=== PATIENT | female | born 1945 | race Hispanic/Latino ===

== ENCOUNTER → 2022-07-08 | Outpatient (CLI) | payer MEDICARE ==
[~2022-07-08] MED LIST: IOHEXOL 350 MG/ML 100ML INFUS..BTL IV ONE; METOPROLOL TARTRATE 1 MG/ML 5ML VIAL IV ONE
== END | disposition home or self-care (01) ==
LOC: RAH 09:48
PROVIDERS: ATTEND Student in an Organized Health Care Education/Training Program
DX: R07.9 Chest pain, unspecified (principal); M47.815 Spondylosis without myelopathy or radiculopathy, thoracolumbar region
CPT/HCPCS: 75574; J3490; Q9967

== ENCOUNTER → 2022-07-08 | Outpatient (CLI) | payer MEDICARE | END | disposition home or self-care (01) | LOC: SHCH 08:20 | PROVIDERS: ATTEND Student in an Organized Health Care Education/Training Program | DX: I25.10 Atherosclerotic heart disease of native coronary artery without angina pectoris (principal); R07.9 Chest pain, unspecified; M47.815 Spondylosis without myelopathy or radiculopathy, thoracolumbar region | CPT/HCPCS: 93306; 75574; J3490; Q9967 ==

== ENCOUNTER 2022-08-30 07:35 | Observation (INO) | payer MEDICARE ==
[2022-08-26 09:13] LABS: BASOPHILS % (AUTO) 0.4 % (0.0-5.0); EOSINOPHILS % (AUTO) 2.2 % (0.0-8.0); HEMATOCRIT 39.1 % (36-48); LYMPHOCYTES % (AUTO) 32.2 % (21.0-51.0); MEAN CORPUSCULAR HEMOGLOBIN 29.2 pg (27.0-33.0); MEAN CORPUSCULAR HGB CONC 32.7 g/dL (32.0-36.0); MEAN CORPUSCULAR VOLUME 89.1 fL (79-99); MONOCYTES % (AUTO) 7.6 % (3.0-13.0); NEUTROPHILS % (AUTO) 57.2 % (40.0-77.0); PLATELET COUNT (AUTO) 302 K/uL (130-400); RED BLOOD CELL COUNT(AUTO) 4.39 MIL/uL (4.00-5.50); RED CELL DISTRIBUTION WIDTH 13.8 % (11.0-15.5); WHITE BLOOD COUNT (AUTO) 8.2 K/uL (4.8-10.8)
[2022-08-26 09:14] VITALS: BP 173/64
[2022-08-26 09:26] LABS: INR 0.98 (0.85-1.15); PROTHROMBIN TIME 10.7 SEC (9.6-11.6)
[2022-08-26 09:27] LABS: CREATININE 0.6 mg/dL (0.5-1.5); PARTIAL THROMBOPLASTIN TIME 35.6 SEC (26.3-35.5); POTASSIUM 4.5 mmol/L (3.5-5.1)
[~2022-08-30] VITALS: Ht 160 cm; Wt 102.5 kg
[2022-08-30] VITALS (13 sets, daily range): BP systolic 119–154; BP diastolic 43–76
[~2022-08-30 07:35] MED LIST changes: +ASPI-449 PO; +ATOR40TA71 PO; -IOHEXOL 350 MG/ML 100ML INFUS..BTL IV ONE; +METO-408 PO; -METOPROLOL TARTRATE 1 MG/ML 5ML VIAL IV ONE; +ROPI0.257 PO; +TRAM50TA4 PO
[2022-08-30] MEDS ORDERED: 0.9%NACL 1000ML 1,000 ML IV ONE (09:09)
[2022-08-30] MEDS ORDERED: FENTANYL CITRATE PF 50 MCG/1 ML 2ML VIAL ONE (09:39)
[2022-08-30] MEDS ORDERED: MIDAZOLAM HCL 1 MG/ML 2ML VIAL ONE ×2 (09:39→10:14)
[2022-08-30] MEDS ORDERED: LIDOCAINE HCL 400MG/20ML VIAL ONE (09:39)
[2022-08-30] MEDS ORDERED: NITROGLYCERIN 50MG VIAL ONE (09:40)
[2022-08-30] MEDS ORDERED: IOHEXOL-350 50ML VIAL IV ONE (09:40)
[2022-08-30] MEDS ORDERED: IOHEXOL 350 MG/ML 100ML INFUS..BTL IV ONE ×2 (09:40→10:40)
[2022-08-30] MEDS ORDERED: HEPARIN 10,000 UNIT/10ML (1,000 UNIT/ML) VIAL ONE (09:40)
[2022-08-30] MEDS ORDERED: VERAPAMIL HCL 2.5 MG/ML VIAL ONE (09:40)
[2022-08-30] MEDS ORDERED: AMIODARONE 150MG VIAL ONE (10:43)
[2022-08-30] MEDS ORDERED: CLOPIDOGREL 300MG TAB ONE (10:59)
[2022-08-30] MEDS ORDERED: CLOPIDOGREL 300MG TAB PO SCH (12:00)
[2022-08-30] MEDS ORDERED: 0.9%NACL 1000ML 1,000 ML IV SCH (12:00)
[2022-08-30] MEDS ORDERED: ONDANSETRON 4MG INJ IVP SCH (12:00)
[2022-08-30] MEDS ORDERED: ACETAMINOPHEN WITH CODEINE 1 TAB TAB PO PRN ×2 (12:00)
[2022-08-30] MEDS ORDERED: NITROGLYCERIN 50MG/D5W 250ML 1 BOT IV PRN (12:00)
[2022-08-30] MEDS ORDERED: ONDANSETRON 4MG INJ IVP PRN (12:00)
[2022-08-30] MEDS ORDERED: TEMAZEPAM 30 MG CAP PO PRN (12:00)
[2022-08-30] MEDS ORDERED: MORPHINE 5 MG/ML VIAL (5MG OR GREATER DOSE) IVP SCH ×2 (12:00)
[2022-08-30] MEDS ORDERED: TRAMADOL HCL 50 MG TABLET ONE (15:07)
[2022-08-30] MEDS ORDERED: TRAMADOL HCL 50 MG TABLET PO PRN (15:30)
[2022-08-31 04:11] VITALS: BP 111/51
[2022-08-31 04:16] LABS: CREATININE 0.7 mg/dL (0.5-1.5); POTASSIUM 3.9 mmol/L (3.5-5.1)
[2022-08-31 07:42] VITALS: BP 111/53
[2022-08-31] MEDS ORDERED: CLOPIDOGREL 75MG TAB PO SCH (09:00)
[2022-08-31] MEDS ORDERED: PANTOPRAZOLE 40 MG TAB DR PO SCH (09:00)
[2022-08-31] MEDS ORDERED: ASPIRIN 81MG CHEW TAB PO SCH (09:00)
[2022-08-31] MEDS ORDERED: ATORVASTATIN 40 MG TABLET PO SCH (09:00)
[2022-08-31] MEDS ORDERED: METOPROLOL SUCCINATE 25 MG TAB.SR.24H PO SCH (09:00)
[2022-08-31] MEDS ORDERED: ROPINIROLE HCL 0.25 MG TABLET PO SCH (21:00)
== END 2022-08-31 12:42 | disposition home or self-care (01) ==
LOC: DAH 07:35 → DAHIP 07:36 → DAH 07:36 → 2AH 13:50
PROVIDERS: ADMIT Student in an Organized Health Care Education/Training Program; ATTEND Student in an Organized Health Care Education/Training Program
DX: I25.10 Atherosclerotic heart disease of native coronary artery without angina pectoris (principal); R93.1 Abnormal findings on diagnostic imaging of heart and coronary circulation; I10 Essential (primary) hypertension; I47.20 Ventricular tachycardia, unspecified; G25.81 Restless legs syndrome; E66.01 Morbid (severe) obesity due to excess calories; M79.81 Nontraumatic hematoma of soft tissue; Z95.1 Presence of aortocoronary bypass graft; Z79.899 Other long term (current) drug therapy; Z98.890 Other specified postprocedural states; Z68.41 Body mass index [BMI] 40.0-44.9, adult
CPT/HCPCS: 80048 ×2; 85025; 85610; 85730; 36415 ×2; 71045; 93005 ×3; 92978; 93458; 93571; 85347 ×3; 76882; C1769 ×3; C1894 ×3; C1760 ×2; C1887; C1753; C1874; C1725 ×2; Q9965 ×3; G0378 ×25; J3010; J3490 ×3; J7030; J1644 ×3; J2250 ×2; Q9967 ×3; J0282; A4215; A4223 ×3; A4222; A4221; A4663; A4216; A4606; C9600; 99156; 99157

== ENCOUNTER → 2022-12-13 | Outpatient (CLI) | payer MEDICARE ==
[2022-12-13 12:24] LABS: HEMOGLOBIN A1C 5.6 % (4.0-6.0)
[2022-12-13 12:31] LABS: CHOLESTEROL 154 mg/dL (<200); HDL CHOLESTEROL 47 mg/dL (35-85); LDL DIRECT 100 mg/dL (0-99); TRIGLYCERIDES 89 mg/dL (30-200)
== END | disposition home or self-care (01) ==
LOC: LAB 08:05
PROVIDERS: ATTEND Student in an Organized Health Care Education/Training Program
DX: E11.9 Type 2 diabetes mellitus without complications (principal); E78.5 Hyperlipidemia, unspecified
CPT/HCPCS: 36415; 80061; 83036

== ENCOUNTER → 2022-12-16 | Outpatient (CLI) | payer MEDICARE ==
[~2022-12-16] MED LIST changes: +ROPI0.2535 PO; -ROPI0.257 PO
== END | disposition home or self-care (01) ==
LOC: SHCH 09:26
PROVIDERS: ATTEND Student in an Organized Health Care Education/Training Program
DX: I87.2 Venous insufficiency (chronic) (peripheral) (principal); R60.0 Localized edema; I73.9 Peripheral vascular disease, unspecified
CPT/HCPCS: 93925; 93970

== ENCOUNTER → 2023-01-10 | Outpatient (CLI) | payer MEDICARE | END | disposition home or self-care (01) | LOC: RAH 09:09 | PROVIDERS: ATTEND Family Medicine | DX: Z12.31 Encounter for screening mammogram for malignant neoplasm of breast (principal) | CPT/HCPCS: 77067 ==

== ENCOUNTER 2023-03-27 14:13 | Observation (INO) | payer MEDICARE ==
[~2023-03-27] VITALS: Ht 162.6 cm; Wt 102.2 kg
[2023-03-27 14:38] LABS: BASOPHILS # (AUTO) 0.05 K/uL (0.00-0.20); BASOPHILS % (AUTO) 0.6 % (0.0-5.0); EOSINOPHILS # (AUTO) 0.14 K/uL (0.00-0.70); EOSINOPHILS % (AUTO) 1.7 % (0.0-8.0); HEMATOCRIT 39.6 % (36-48); IMMATURE GRANULOCYTE ABSOLUTE 0.02 K/uL (0-1); LYMPHOCYTES % (AUTO) 35.3 % (21.0-51.0); MEAN CORPUSCULAR HEMOGLOBIN 29.8 pg (27.0-33.0); MEAN CORPUSCULAR HGB CONC 33.8 g/dL (32.0-36.0); MEAN CORPUSCULAR VOLUME 88.2 fL (79-99); MONOCYTES # (AUTO) 0.6 K/uL (0.1-1.0); NEUTROPHILS # (AUTO) 4.7 K/uL (1.8-7.7); NEUTROPHILS % (AUTO) 55.2 % (40.0-77.0); PLATELET COUNT (AUTO) 330 K/uL (130-400); RED BLOOD CELL COUNT(AUTO) 4.49 MIL/uL (4.00-5.50); RED CELL DISTRIBUTION WIDTH 13.3 % (11.0-15.5); WHITE BLOOD COUNT (AUTO) 8.4 K/uL (4.8-10.8)
[2023-03-27 14:42] LABS: APPEARANCE,URINE CLEAR (CLEAR); BILIRUBIN,URINE NEGATIVE (NEGATIVE); COLOR,URINE YELLOW (YELLOW); GLUCOSE, URINE (UA) NEGATIVE (NEGATIVE); KETONES,URINE NEGATIVE (NEGATIVE); LEUKOCYTE ESTERASE ,URINE 75 Leu/uL (NEGATIVE); NITRATE,URINE NEGATIVE (NEGATIVE); OCCULT BLOOD,URINE SMALL (NEGATIVE); PH,URINE 5.5 (5.0-8.0); PROTEIN,URINE NEGATIVE (NEGATIVE); UROBILINOGEN,URINE 0.2 mg/dL (0.2-1.0)
[2023-03-27 14:43] LABS: ADD UA MICROSCOPIC YES
[2023-03-27 14:45] LABS: BACTERIA,URINE RARE /HPF (None Seen); MUCUS,URINE RARE LPF (None Seen); SQUAMOUS EPITHELIAL CELL,UR RARE /HPF (0-2)
[2023-03-27 14:46] LABS: CARBON DIOXIDE 27 mmol/L (21-32); CHLORIDE 104 mmol/L (101-111); CREATININE 0.7 mg/dL (0.5-1.5); GLOMERULAR FILTR. RATE CALC 90 mL/min (>90); GLUCOSE,RANDOM 117 mg/dL (70-105); POTASSIUM 3.8 mmol/L (3.5-5.1); SODIUM SERUM 139 mmol/L (136-145); UREA NITROGEN, BLOOD 10 mg/dL (7-18)
[2023-03-27 14:56] LABS: ALANINE AMINOTRANSFERASE 24 U/L (12-78); ALBUMIN 3.4 g/dL (3.5-5.0); ASPARTATE AMINOTRANSFERASE 17 U/L (10-37); BILIRUBIN,TOTAL 0.3 mg/dL (0.2-1.0); CREATINE KINASE, TOTAL 50 U/L (21-232); MYOGLOBIN 41 ng/mL (10-92); TOTAL PROTEIN, SERUM 7.5 g/dL (6.0-8.3)
[2023-03-27] MEDS ORDERED: POTASSIUM CHLORIDE 10% ELIXIR 20 MEQ/15 ML UDCUP PO PRN (20:30)
[2023-03-27] MEDS ORDERED: NITROGLYCERIN 0.4 MG SL TAB SL PRN (20:30)
[2023-03-27] MEDS ORDERED: ONDANSETRON 4MG INJ IV PRN (20:30)
[2023-03-27] MEDS ORDERED: ACETAMINOPHEN 325 MG TAB PO PRN (20:30)
[2023-03-27] MEDS ORDERED: MAGNESIUM 2GM PREMIX 50ML 50 ML IV PRN (20:30)
[2023-03-27] MEDS ORDERED: KCL 20 MEQ ERTAB PO PRN (20:30)
[2023-03-27] MEDS ORDERED: POTASSIUM CHLORIDE 20MEQ/100ML 100 ML IV PRN (20:30)
[2023-03-27] MEDS: METOPROLOL TARTRATE 25 MG TAB PO SCH (21:00)
[2023-03-27] MEDS: FAMOTIDINE 20MG TAB PO SCH (23:41)
[2023-03-27] MEDS: CEFTRIAXONE 1G VIAL IVPB SCH (23:41)
[2023-03-28] VITALS (7 sets, daily range): BP systolic 116–172; BP diastolic 57–73; PULSE 64–84; RESP 17–20; O2SAT 97
[2023-03-28] MEDS ORDERED: ROPINIROLE HCL 0.25 MG TABLET PO ONE
[2023-03-28 04:41] LABS: BASOPHILS # (AUTO) 0.04 K/uL (0.00-0.20); BASOPHILS % (AUTO) 0.4 % (0.0-5.0); EOSINOPHILS # (AUTO) 0.21 K/uL (0.00-0.70); EOSINOPHILS % (AUTO) 2.4 % (0.0-8.0); HEMATOCRIT 37.3 % (36-48); IMMATURE GRANULOCYTE ABSOLUTE 0.04 K/uL (0-1); LYMPHOCYTES # (AUTO) 3.1 K/uL (1.0-4.8); LYMPHOCYTES % (AUTO) 34.8 % (21.0-51.0); MEAN CORPUSCULAR HEMOGLOBIN 29.5 pg (27.0-33.0); MEAN CORPUSCULAR HGB CONC 33.2 g/dL (32.0-36.0); MEAN CORPUSCULAR VOLUME 88.8 fL (79-99); MONOCYTES # (AUTO) 0.7 K/uL (0.1-1.0); MONOCYTES % (AUTO) 7.3 % (3.0-13.0); NEUTROPHILS # (AUTO) 4.9 K/uL (1.8-7.7); NEUTROPHILS % (AUTO) 54.7 % (40.0-77.0); PLATELET COUNT (AUTO) 313 K/uL (130-400); RED CELL DISTRIBUTION WIDTH 13.6 % (11.0-15.5); WHITE BLOOD COUNT (AUTO) 8.9 K/uL (4.8-10.8)
[2023-03-28 04:59] LABS: HEMOGLOBIN A1C 5.9 % (4.0-6.0)
[2023-03-28 05:13] LABS: ALBUMIN 3.1 g/dL (3.5-5.0); BILIRUBIN,TOTAL 0.2 mg/dL (0.2-1.0); CREATININE 0.7 mg/dL (0.5-1.5); MAGNESIUM 1.9 mg/dL (1.80-2.40); POTASSIUM 4.2 mmol/L (3.5-5.1); THYROID STIMULATING HORMONE 2.67 uIU/mL (0.36-3.74); TOTAL PROTEIN, SERUM 6.7 g/dL (6.0-8.3)
[2023-03-28] MEDS: METOPROLOL TARTRATE 25 MG TAB PO SCH ×2 (09:00→20:24)
[2023-03-28] MEDS: ASPIRIN 81 MG EC TAB PO SCH (09:23)
[2023-03-28] MEDS: FAMOTIDINE 20MG TAB PO SCH ×2 (09:23→20:20)
[2023-03-28] MEDS: CEFTRIAXONE 1G VIAL IVPB SCH (20:20)
[2023-03-28] MEDS ORDERED: ROPINIROLE HCL 0.25 MG TABLET PO SCH (21:00)
[2023-03-28] MEDS: ACETAMINOPHEN 325 MG TAB PO PRN (21:10)
[2023-03-29] VITALS: BP 126/59; PULSE 70; RESP 20
[2023-03-29] MEDS: ACETAMINOPHEN 325 MG TAB PO PRN (01:30)
[2023-03-29 04:00] VITALS: BP 129/51; PULSE 79; RESP 20
[2023-03-29 07:44] VITALS: O2SAT 96
[2023-03-29] MEDS: METOPROLOL TARTRATE 25 MG TAB PO SCH (07:56)
[2023-03-29 08:00] VITALS: BP 149/80; PULSE 72; RESP 16
[2023-03-29] MEDS: ASPIRIN 81 MG EC TAB PO SCH (08:11)
[2023-03-29] MEDS: FAMOTIDINE 20MG TAB PO SCH (08:11)
[2023-03-29] MEDS ORDERED: CEFD300C3 PO (08:15)
== END 2023-03-29 09:45 | disposition home or self-care (01) ==
LOC: EDH 14:13 → EDHIP 20:01 → 4CH 23:58
PROVIDERS: ADMIT Hospitalist; ATTEND Hospitalist
DX: R07.89 Other chest pain (principal); I10 Essential (primary) hypertension; N39.0 Urinary tract infection, site not specified; E66.01 Morbid (severe) obesity due to excess calories; R73.9 Hyperglycemia, unspecified; I25.10 Atherosclerotic heart disease of native coronary artery without angina pectoris; G25.81 Restless legs syndrome; G89.29 Other chronic pain; M54.9 Dorsalgia, unspecified; Z68.41 Body mass index [BMI] 40.0-44.9, adult; Z95.5 Presence of coronary angioplasty implant and graft; Z90.710 Acquired absence of both cervix and uterus; Z98.890 Other specified postprocedural states; Z79.82 Long term (current) use of aspirin
CPT/HCPCS: 96374; 99285; 82550; 83735 ×3; 83874; 84484 ×2; 80053 ×2; 85025 ×2; 87088; 81001; 36415 ×3; 71045; 93005; 96376; 96375; 83036; 84443; 80061; G0378 ×38; J0696 ×2; J3475

== ENCOUNTER → 2023-06-22 | Outpatient (CLI) | payer MEDICARE ==
[~2023-06-22] MED LIST changes: +CEFD300C3 PO
[2023-06-22 12:35] LABS: CHOLESTEROL 161 mg/dL (<200); HDL CHOLESTEROL 61 mg/dL (35-85); LDL DIRECT 99 mg/dL (0-99); TRIGLYCERIDES 80 mg/dL (30-200)
[2023-06-22 13:00] LABS: HEMOGLOBIN A1C 5.8 % (4.0-6.0)
== END | disposition home or self-care (01) ==
LOC: LAB 08:03
PROVIDERS: ATTEND Student in an Organized Health Care Education/Training Program
DX: E11.9 Type 2 diabetes mellitus without complications (principal); E78.5 Hyperlipidemia, unspecified; R07.9 Chest pain, unspecified
CPT/HCPCS: 36415; 80061; 83036

== ENCOUNTER → 2025-03-26 | Outpatient (CLI) | payer MEDICARE ==
--- NOTE | 2025-03-30 16:13 | HMCIMG ---
CLINICAL INDICATION: Age-related osteoporosis without current pathological fracture COMPARISON: None available TECHNIQUE: Bone densitometry is performed of the lumbar spine and left hip. FINDINGS: Total BMD of lumbar spine is 0.860 g/cm2 with a T-score of -1.7 and Z-score is 0.8. Total BMD of left hip is 1.02 g/cm2 with a T-score of 0.7 and Z-score is 2.6. FRAX SCORE: The 10 year fracture risk for a major osteoporotic fracture and hip fracture 8.6% IMPRESSION: 1. Osteopenia of the lumbar spine 2. Normal left hip 3. I would recommend follow-up in 13 months. World Health Organization criteria for BMD interpretation classify patients as Normal (T-score at or above -1.0), Osteopenic (T-score between -1.0 and -2.5), or Osteoporotic (T-score at or below -2.5). FRAX SCORE: A. All treatment decisions require clinical judgment and consideration of individual patient factors, including patient preferences, comorbidities, previous drug use, risk factors not captured in the FRAX model (e.g., frailty, falls, vitamin D deficiency, increased bone turnover, interval significant decline in bone density) and possible [id number]-estimation of fracture risk by FRAX. B. In addition, the NOF Guide recommends that FDA-approved medical therapies be considered in postmenopausal women and men age greater than or equal to 50 years with a: i. Hip or vertebral (clinical or morphometric) fracture. ii. T-score of less than or equal to -2.5 at the spine or hip. iii. Ten-year fracture probability by FRAX of greater than or equal to 3% for hip fracture of greater than or equal to 20% for major osteoporotic fracture.
== END | disposition home or self-care (01) ==
LOC: RAH 09:04
PROVIDERS: ATTEND Family Medicine
DX: M85.88 Other specified disorders of bone density and structure, other site (principal); M81.0 Age-related osteoporosis without current pathological fracture; Z13.820 Encounter for screening for osteoporosis
CPT/HCPCS: 77080